=== PATIENT | female | born 1960 | race Caucasian/White ===

== ENCOUNTER 2021-10-09 11:26 | Outpatient (CLI) | payer OTHER, SELFPAY ==
--- NOTE | 2021-10-09 11:30 | ECG_ITS ---
Measurements Intervals [place] Rate: 83 P: 26 HI: 190 QRS: 36 QRSD: 86 T: 42 QT: 361 QTc: 425 Interpretive Statements SINUS RHYTHM DELAYED PRECORDIAL R/S TRANSITION BORDERLINE ST-T WAVE ABNORMALITY- HIGH LATERAL LEADS BASELINE ARTIFACT- I, II, III, AVR, AVL, AVF BORDERLINE ECG Electronically Signed On 10-09-2021 12:43:35 K 9 [employer] OFFICER by [place] Sylvester D.O.
== END 2021-10-09 11:27 | disposition home or self-care (01) ==
LOC: ANHSURGERY 11:31
PROVIDERS: PCP Family Medicine; Visit Provider Orthopaedic Surgery
DX: E11.65 Type 2 diabetes mellitus with hyperglycemia (principal); E78.2 Mixed hyperlipidemia; I10 Essential (primary) hypertension
CPT/HCPCS: 93005

== ENCOUNTER 2021-10-14 00:19 | Day surgery (SDC) | payer BC, OTHER, SELFPAY ==
[2021-10-08 14:42] VITALS: BMI 33.5
--- NOTE | 2021-10-08 15:13 | PC.NURSE ---
Report to the Outpatient Waiting Room, entrance under the green pavilion located off [facility], at time _12:30_ on date _10/14/21__. OR Time: __2:30 . SURGERY AND ARRIVAL TIMES SOMETIMES CHANGE!!! IF YOUR SURGERY TIME IS ADJUSTED, YOU WILL BE NOTIFIED ON 10/11/21 AFTERNOON!!! - You will be asked a series of questions to screen for COVID 19 for your protection. - A mask is required within the hospital. - CURRENTLY NO VISITORS are allowed at this time. Patient visitors will be guided where to wait when not with patient. Preoperative COVID Testing Requirements: No COVID Test needed if: (proof is required; if not received patient will have Rapid Test prior to entry) - Patient has received COVID Vaccine at least 14 days prior to procedure date or - Patient has positive COVID test result within last 90 days of surgery date. COVID Test needed if above criteria is not met If not COVID vaccinated a COVID test must be conducted within 72 hours of surgery and patient is asked to isolate self from time of testing until procedure. You will go to the [facility] for your COVID testing. The [employer] site is located at the corner of [address] [facility]. You will only be called if COVID results are positive and your surgeon may reschedule your elective surgery date. Patients may have clear liquids (water, carbonated beverages, clear teas, apple juice) until 3 hours prior to surgery with a maximum of 20 ounces. - No food from midnight until time of surgery - Infants may have breast milk until 4 hours before surgery, formula 6 hours prior to surgery. - Children will be allowed to drink immediately following surgery. If applicable, please bring a bottle or sippy cup to assist with drinking. Juice, water, soda, and popsicles are readily available. For infants on formula, please bring formula the day of surgery. Pacifiers are allowed. Take the following medications with a SIP of water the morning of surgery: _AMLODIPINE; TROUJEO 14UNITS(1/2 NORMAL DOSE); ACID APPLICATION TESTER (OMEPRAZOLE) Medications to discontinue per physician ____NO NEED TO HOLD ANY MEDS. MAY CONTINUE ASA 81MG PER DR. MCINTYRE Date to take last dose____N/A Please no make-up, nail greek, hairspray, perfume, deodorant, or body powder the day of surgery. No jewelry (including any body piercings) or valuables the day of surgery, leave them at home. Please take a shower or bath the night before, or the morning of, surgery with an antibacterial soap. Wear comfortable, loose fitting clothing. Children are encouraged to wear pajamas. - Jewelry must be removed prior to entering the operating room. Rings and piercings that are not removed may be cut off. - The hospital will not accept responsibility for valuables. - Please leave all valuables, including medications, at home the day of surgery. If you are going home after surgery, a licensed catshovel driver must drive you home. - NO public transportation without another adult. - We recommend that an adult stay with you for 24 hours following discharge. - We also recommend that you do not drive, make important decision, drink alcoholic beverages, or take any drugs that were not prescribed by your health care provider for at least 24 hours after your discharge time. For Pediatric surgeries, we recommend two adults accompany the child home (only one inside the building at this time). Follow any additional instructions given to you from your surgeon. Telephone instructions given to _NAKIA LIANG_and asked if any additional questions and then verbalized understanding. Patient advised to call surgeon office or pre surgery nurse liaison [phone] if any additional questions.
[2021-10-14] MEDS: ACETAMINOPHEN 500 MG TABLET 1000 MG PO (11:35)
[2021-10-14 11:38] LABS: Glucose Point of Care 137 mg/dl (65-105)
[2021-10-14 11:40] VITALS: BP 141/55; PULSE 67; RESP 16; TEMP 37.1; O2SAT 100
[2021-10-14] MEDS: KETOROLAC 15 MG/ML VIAL (*BKC) IV PUSH (11:51)
--- NOTE | 2021-10-14 12:00 | WPDHPUPDATE1 ---
History and Physical Update Update Date/Time: 10/14/21 12:00 History and Physical has been reviewed, including an updated exam of the patient. There are NO changes in the patient's condition. Risks, benefits, and alternatives have been discussed and questions answered. Patient agrees to proceed with procedure.
--- NOTE | 2021-10-14 12:02 | WPDANESEPPF ---
Anes - Initial Pre Proc Eval Procedure: Operation Date: 10/14/21 13:00 Proposed Procedures p Right First and Fourth Trigger Finger Release - Markus Saldana MD s Right First Dorsal Compartment Release - Markus Saldana MD Date/Time: 10/14/21 12:02 Surgeon: Markus Saldana MD Pre Op Diagnosis: right 1st and 4th trigger finger,rt dequerv synd Patient Data Age: 61 Gender: F Height: 1.52 m Weight: 78 kg Allergies Allergy/AdvReac Type Severity Reaction Status Date / Time No Known Allergies Allergy Verified 10/14/21 11:15 Home Medications Medication Instructions Recorded Confirmed Type aspirin 81 mg tablet,delayed 81 mg PO DAILY 06/13/20 10/14/21 History release blood sugar diagnostic #400 each 06/13/20 10/09/21 Rx blood-glucose meter #1 each 06/13/20 10/09/21 Rx lancets 31 gauge #400 each 06/13/20 10/09/21 Rx insulin glargine U-300 conc 300 28 unit SUB-Q DAILY 90 Days #8.397 04/18/21 10/14/21 Rx unit/mL (1.5 mL) subcutaneous pen ml pen needle, diabetic 31 gauge x #120 each 06/18/21 10/09/21 Rx 12/11 insulin lispro 100 unit/mL 12 unit SUB-Q TIDWMEAL ml 07/09/21 10/14/21 History subcutaneous pen lisinopril 40 mg tablet See Rx Instructions .ROUTE 08/14/21 10/14/21 Rx .COMPLEX #90 tablet omeprazole magnesium 20 mg 20 mg PO DAILY 09/25/21 10/14/21 History capsule,delayed release acetaminophen [Tylenol Arthritis 650 mg PO Q12H PRN 10/08/21 10/14/21 History Pain] amlodipine 2.5 mg PO DAILY 10/08/21 10/14/21 History atorvastatin 80 mg PO DAILY 10/08/21 10/14/21 History chlorthalidone 25 mg PO DAILY 10/08/21 10/14/21 History metformin 1,000 mg PO DAILY 10/08/21 10/14/21 History brimonidine 0.2 %-timolol 0.5 % 1 drp EACH EYE Q12H 10/09/21 10/14/21 History eye drops acetazolamide 250 mg PO BID 10/10/21 10/14/21 History dorzolamide 1 drp EACH EYE BID 10/10/21 10/14/21 History Laboratory Tests 10/14/21 11:34 POC Capillary Glucose 137 mg/dl H mg/dl (65-105) Patient hx anesthesia problems: none Family hx anesthesia problems: none Results Review: All pre-operative results and documents have been reviewed as part of the pre-operative evaluation. FORMERLY [facility] Past Medical History Medical History (Updated 10/09/21 @ 10:29 by Markus Saldana MD) Arthritis Cholecystectomy planned De Quervain's disease (radial styloid tenosynovitis) Right and left side Hemoglobin A1C between 7% and 9% indicating borderline diabetic control 12/28/20 A1c was 7.8 Hypertension Systolic murmur Trigger finger Trigger finger of right thumb Type 2 diabetes mellitus with hyperglycemia Type 2 diabetes mellitus with unspecified diabetic retinopathy without macular edema Surgical History Surgical History H/O section H/O tubal ligation H/O: hysterectomy History of cholecystectomy Hx of tonsillectomy Family History Family History Father Diabetes mellitus Family history of cardiovascular disease Family history of malignant neoplasm of kidney Mother Diabetes mellitus Family history of malignant neoplasm Sibling Diabetes mellitus Mother Family history of malignant neoplasm Family history of diabetes mellitus in first degree relative Father Family history of diabetes mellitus in first degree relative Family history of malignant neoplasm of kidney Family history of heart disease in male family member before age 55 Sibling Family history of diabetes mellitus in first degree relative Other Cerebrovascular accident Hypertension Social History Social History Smoking status: Never smoker Alcohol intake: never Substance use: never Substance use type: does not use Living arrangements: with family Gender identity (if verbalized by the patient): Female Spiritual care concerns: No Anes - Eval Final PrePr
[2021-10-14] MEDS: LACTATED RINGERS 1,000 ML 30 ML IV CONT (12:26)
[2021-10-14] MEDS: ceFAZolin 2 GM/D5W 50 ML 2 GM/50 ML BAG IVPB (12:36)
[2021-10-14 13:23] VITALS: BP 111/46; PULSE 67; RESP 12; TEMP 36.1; O2SAT 100
--- NOTE | 2021-10-14 13:30 | W.PM.PROC2 ---
Procedure Note - Detailed Date of Procedure 10/14/21 Pre-op Diagnosis right 1st and 4th trigger finger De Quervain right distal forearm Post-op Diagnosis same Procedure Performed Right trigger thumb release, right fourth trigger finger release, right first dorsal compartment release. Surgeon Markus Saldana MD Supervisor Shuttle Preparation Nazia Anesthesia general Description of Procedure The patient was identified and proper site identified. She was taken to the operating room and transferred to the OR table placing supine taking care to pad the torso and extremities. After general anesthetic induction and intubation a nonsterile tourniquet was placed high on the right arm which was prepped and draped in the usual sterile fashion. Several cc of .25 % plain Marcaine was injected into the subcutaneous tissue over the A1 charanjit of the right first and fourth digit, as well as over the right first dorsal compartment at the radial styloid. The extremity was exsanguinated and the tourniquet was inflated to 250 mmHg remaining up for about 18 minutes. A longitudinal incision was made over the fourth digit A1 charanjit. Subcutaneous tissue was bluntly dissected down to the charanjit while protecting the neurovascular bundles. The A1 charanjit was identified and then transected longitudinally in line with the incision and tendons. The tendons were delivered into the wound verifying the adequacy of the release. The same procedure was carried out over the thumb A1 charanjit. Next a longitudinal incision was made over the radial styloid. Subcutaneous tissue bluntly dissected. Sensory branch of the radial nerve identified retracted. The first dorsal compartment was identified and then transected longitudinally in line with the tendons releasing the compartment. The space was examined and no accessory compartment found. Hemostasis was carried out. The wound was irrigated with sterile saline. Skin edges were reapproximated with 4-0 nylon suture over the first and fourth digit A1 pulleys. Skin edges over the first dorsal compartment were reapproximated with 4-0 Prolene and Steri-Strips. Sterile dressing was applied. Tourniquet was released. She tolerated the procedure well and was transferred back to a cart, then taken to the recovery area in stable condition. There were no known intraoperative complications. Estimated blood loss was negligible. Perioperative antibiotics were administered. Estimated Blood Loss 1 Tourniquet Time 18 Drains No Packing No Pathology none sent Complications No immediate complications Condition stable Disposition PACU
[2021-10-14 13:35] VITALS: BP 126/43; PULSE 67; RESP 10; O2SAT 100
--- NOTE | 2021-10-14 13:39 | SUR.PHASEI ---
Simple mask removed at 1331.
[2021-10-14 13:50] VITALS: BP 120/44; PULSE 67; RESP 12; O2SAT 100
[2021-10-14 13:52] LABS: Glucose Point of Care 114 mg/dl (65-105)
[2021-10-14 13:57] VITALS: BP 140/51; PULSE 66; RESP 16
[2021-10-14 14:30] VITALS: BP 146/64; PULSE 61; RESP 16
== END 2021-10-14 15:04 | disposition home or self-care (01) ==
PROVIDERS: PCP Family Medicine; Visit Provider Orthopaedic Surgery
PROC: (CPT 26055; principal; 2021-10-14 13:00)
PROC: (CPT 25000; 2021-10-14 13:00)
DX: M65.341 Trigger finger, right ring finger (principal); M65.311 Trigger thumb, right thumb; M65.4 Radial styloid tenosynovitis [de Quervain]; I10 Essential (primary) hypertension; E11.319 Type 2 diabetes mellitus with unspecified diabetic retinopathy without macular edema; R01.1 Cardiac murmur, unspecified; M19.90 Unspecified osteoarthritis, unspecified site; Z90.49 Acquired absence of other specified parts of digestive tract; Z79.82 Long term (current) use of aspirin; Z79.84 Long term (current) use of oral hypoglycemic drugs; Z79.4 Long term (current) use of insulin; E66.9 Obesity, unspecified; Z68.33 Body mass index [BMI] 33.0-33.9, adult
CPT/HCPCS: 25000; 26055 ×2; 82948; A9270; J0690; J1100; J1885; J2250; J2405; J2704; J7120

== ENCOUNTER → 2022-01-03 12:16 | Outpatient (CLI) | payer OTHER, SELFPAY ==
--- NOTE | ~2022-01-03 | XR_ITS ---
XR hip LT min 3V w AP pelvis DATE: 01/03/2022 12:32 INDICATION: Left hip pain TECHNIQUE: AP and lateral views of left hip. AP pelvis. COMPARISON: None FINDINGS: No pelvic fracture or bone destruction is detected. The pubic symphysis and sacroiliac join ts are intact. Hip joint spaces are symmetric and relatively well preserved. No fracture or dislocation, avascular necrosis or bone destruction of the left hip. Prominent femoral and deep femoral arterial calcifications. IMPRESSION: No significant radiographic abnormality of the left hip joint Reviewed, dictated and finalized at location A.
== END ==
PROVIDERS: PCP Family Medicine; Visit Provider Physician Assistant
DX: M25.552 Pain in left hip (principal)
CPT/HCPCS: 73502

== ENCOUNTER → 2022-05-14 11:23 | Outpatient (CLI) | payer OTHER, SELFPAY ==
--- NOTE | ~2022-05-14 | XR_ITS ---
EXAMINATION: [id number] INDICATION: Left-sided chest pain TECHNIQUE: PA and lateral views of the chest and 3 views of the left ribs were obtained. COMPARISON: None. FINDINGS: Calcified nodules of the left lung are consistent with old granulomatous disease. The lungs are free of acute opacities. No pleural effusion or pneumothorax. The cardiomediastinal silhouette i s normal. Surgical clips in the right upper quadrant are likely from prior cholecystectomy. IMPRESSION: 1. No acute cardiopulmonary abnormality or evidence of displaced rib fracture. Reviewed, dictated and finalized at location A.
== END ==
PROVIDERS: PCP Family Medicine; Visit Provider Family Medicine
DX: R07.89 Other chest pain (principal)
CPT/HCPCS: 71101

== ENCOUNTER 2023-05-04 07:52 | Outpatient (CLI) | payer OTHER, SELFPAY ==
[2023-05-04 08:57] LABS: Anion Gap 5 mmol/L (8-16); Blood Urea Nitrogen 24 mg/dL (7-17); Calcium 9.4 mg/dL (8.4-10.2); Carbon Dioxide 28 mmol/L (22-30); Chloride 104 mmol/L (98-107); Estimated Glomerular Filt Rate 50; Glucose 123 mg/dL (65-110); Potassium 4.2 mmol/L (3.4-5.0); Sodium 137 mmol/L (137-145)
== END 2023-05-04 07:53 | disposition home or self-care (01) ==
LOC: ANHSURGERY 07:56
PROVIDERS: Anesthesiology; PCP Family Medicine; Visit Provider Orthopaedic Surgery
DX: E11.9 Type 2 diabetes mellitus without complications (principal); Z01.818 Encounter for other preprocedural examination
CPT/HCPCS: 36415; 80048

== ENCOUNTER 2023-05-11 01:34 | Day surgery (SDC) | payer OTHER, SELFPAY ==
[2023-05-01 15:35] VITALS: BMI 23.0
--- NOTE | 2023-05-01 15:41 | PC.NURSE ---
Report to the Outpatient Waiting Room, entrance under the green pavilion located off [facility], at time 6:00 on date 05/11/23. Planned Procedure Time: 7:30. Time changes happen often and if your time is changed the preop area will call you the afternoon before. - You and your visitor will be asked to self-screen and do not enter if you have any COVID symptoms. - A mask is optional within the hospital at this time. Patients may have clear liquids (water, carbonated beverages, clear teas, apple juice) until 3 hours prior to surgery (4:30) with a maximum of 20 ounces. - No food from midnight until time of surgery Take the following medications with a SIP of water the morning of surgery: AMLODIPINE DO NOT STOP ANY OF YOUR OTHER PRESCRIPTION MEDICATIONS PRIOR TO SURGERY ?EXCEPT THE FOLLOWING Medications to discontinue per physician: VITAMINS Date to take last dose: 05/07/23 Please no make-up, nail hong konger, hairspray, perfume, deodorant, or body powder the day of surgery. No jewelry (including any body piercings) or valuables the day of surgery, leave them at home. Please take a shower or bath the night before, or the morning of, surgery with an antibacterial soap. Wear comfortable, loose fitting clothing. - Jewelry must be removed prior to entering the operating room. Rings and piercings that are not removed may be cut off. - The hospital will not accept responsibility for valuables. - Please leave all valuables, including medications, at home the day of surgery. If you are going home after surgery, a licensed rivet driver must drive you home. - NO public transportation without another adult if you receive anesthesia. - We recommend that an adult stay with you for 24 hours following discharge. - We also recommend that you do not drive, make important decision, drink alcoholic beverages, or take any drugs that were not prescribed by your health care provider for at least 24 hours after your discharge time. Follow any additional instructions given to you from your surgeon. If you or anyone in your household have experienced Covid symptoms in the past week, please notify your surgeon or the nurse liaison at the phone number below for possible testing. Telephone instructions given to PT - NAKIA LIANG and asked if any additional questions and then verbalized understanding. Patient advised to call surgeon office or pre surgery nurse liaison [phone] if any additional questions.
[2023-05-11 09:04] VITALS: BP 152/48; PULSE 84; RESP 18; TEMP 36.2; O2SAT 100
[2023-05-11] MEDS: LACTATED RINGERS 1,000 ML 30 ML IV CONT (09:29)
[2023-05-11] MEDS: KETOROLAC 15 MG/ML VIAL (*BKC) IV PUSH (09:31)
[2023-05-11] MEDS: ACETAMINOPHEN 500 MG TABLET 1000 MG PO (09:31)
--- NOTE | 2023-05-11 09:31 | WPDHPUPDATE1 ---
History and Physical Update Update Date/Time: 05/11/23 09:31 History and Physical has been reviewed, including an updated exam of the patient. There are NO changes in the patient's condition. Risks, benefits, and alternatives have been discussed and questions answered. Patient agrees to proceed with procedure.
[2023-05-11 10:29] LABS: Glucose Point of Care 89 mg/dl (65-105)
--- NOTE | 2023-05-11 11:05 | WPDANESEPPF ---
Anes - Initial Pre Proc Eval Procedure: Operation Date: 05/11/23 11:00 Proposed Procedures p Right Third Trigger Finger Release - Markus Saldana MD Date/Time: 05/11/23 11:05 Surgeon: Markus Saldana MD Pre Op Diagnosis: Rt Third Trigger Finger Patient Data Age: 63 Gender: F Height: 1.52 m Weight: 52.7 kg Last Vital Signs Temp 36.2 C L 05/11/23 09:04 Pulse 84 05/11/23 09:04 Resp 18 05/11/23 09:04 BP 152/48 H 05/11/23 09:04 Pulse Ox 100 05/11/23 09:04 O2 Del Method Room Air 05/11/23 09:04 Allergies Allergy/AdvReac Type Severity Reaction Status Date / Time No Known Allergies Allergy Verified 05/11/23 09:11 Home Medications Medication Instructions Recorded Confirmed Type aspirin 81 mg tablet,delayed 81 mg PO DAILY 06/13/20 05/11/23 History release (Adult Aspirin Regimen) omeprazole magnesium 20 mg 20 mg PO DAILY 09/25/21 05/11/23 History capsule,delayed release (Acid Master Sheet Clerk (omeprazole)) acetaminophen 650 mg 650 mg PO Q12H PRN Pain 10/08/21 05/11/23 History tablet,extended release (Tylenol Arthritis Pain) blood sugar diagnostic (Blood #400 ea 02/21/22 05/11/23 Rx Glucose Test strips) ONE TOUCH VERIO KIT #1 ea 03/07/22 05/11/23 Rx ONE TOUCH VERIO TEST STRIPS #400 ea 03/07/22 05/11/23 Rx lancets 30 gauge (OneTouch Delica #400 ea 03/11/22 05/11/23 Rx Plus Lancet) pen needle, diabetic 31 gauge x #100 ea 05/07/22 05/11/23 Rx 3/16 (BD Ultra-Fine Mini Pen Needle) latanoprost 0.005 % eye drops 1 drp EACH EYE DAILY 08/25/22 05/11/23 History semaglutide 1 mg/dose (4 mg/3 mL) 1 mg (0.75 mL) subcut WEEKLY 90 09/03/22 05/11/23 Rx subcutaneous pen injector (Ozempic) days #9 mL metformin 500 mg tablet,extended 500 mg PO BID 90 days #180 tabs 01/07/23 05/11/23 Rx release 24 hr atorvastatin 80 mg tablet See Rx Instructions .Route 04/02/23 05/11/23 Rx .COMPLEX #90 tabs dapagliflozin propanediol 10 mg See Rx Instructions .Route 04/02/23 05/11/23 Rx tablet (Farxiga) .COMPLEX #90 tabs cholecalciferol (vitamin D3) 50 50 mcg PO DAILY #90 caps 04/07/23 05/11/23 Rx mcg (2,000 unit) capsule lisinopril 40 mg tablet See Rx Instructions .Route 04/07/23 05/11/23 Rx .COMPLEX #90 tabs amlodipine 2.5 mg tablet See Rx Instructions .Route 05/11/23 Rx .COMPLEX #90 tabs Laboratory Tests 05/11/23 10:25 POC Capillary Glucose 89 mg/dl (65-105) Patient hx anesthesia problems: none Family hx anesthesia problems: none Results Review: All pre-operative results and documents have been reviewed as part of the pre-operative evaluation. FORMERLY [facility] Past Medical History Medical History Arthritis Cholecystectomy planned Chronic kidney disease (CKD) stage G3a/A3, moderately decreased glomerular filtration rate (GFR) between 45-59 mL/min/1.73 square meter and albuminuria creatinine ratio greater than 300 mg/g De Quervain's disease (radial styloid tenosynovitis) Diabetic nephropathy with proteinuria Diabetic retinopathy with macular edema associated with type 2 diabetes mellitus Essential hypertension Hemoglobin A1C between 7% and 9% indicating borderline diabetic control 12/28/20 A1c was 7.8 Hip pain Hx of basal cell carcinoma neck 8.11.22 Left shoulder pain 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
[2023-05-11] MEDS: ceFAZolin 2 GM/D5W 50 ML 2 GM/50 ML BAG IVPB (11:08)
[2023-05-11 11:30] VITALS: BP 93/41; PULSE 71; RESP 14; O2SAT 98
[2023-05-11] MEDS: BUPivacaine HCL 0.25% PF 30 ML VIAL 4 ML INFILTRATE (11:34)
[2023-05-11 11:41] LABS: Glucose Point of Care 86 mg/dl (65-105)
--- NOTE | 2023-05-11 11:41 | W.PM.PROC2 ---
Procedure Note - Detailed Date of Procedure 05/11/23 Pre-op Diagnosis Rt Third Trigger Finger Post-op Diagnosis Same Procedure Performed right third trigger finger release Surgeon Markus Saldana MD [facility]z Anesthesia MAC and Local Description of Procedure the patient was identified and proper side identified. She was taken to the operating room and transferred to the OR table placed her supine taking care to pad her torso extremities. A nonsterile tourniquet was placed high in the right arm. Right upper extremity was prepped and draped in usual sterile fashion. Patient was administered IV sedation. 3cc of 0.25% plain Marcaine was injected into the subcutaneous tissue over the A1 charanjit of the third digit right hand. Extremity was exsanguinated tourniquet was inflated to 250 millimeters Hg remaining up for approximately 4 minutes. Longitudinal incision was made over the A1 charanjit. Subcutaneous tissue was bluntly dissected identifying the charanjit which was then transected longitudinally in line with the tendons. Neurovascular bundles were protected. Tendons were delivered into the wound to verify the adequacy of the release. Wound was irrigated with sterile saline. Skin edges reapproximated with 4-0 nylon suture and sterile dressing was applied. Tourniquet was released. She tolerated the procedure well was taken back to recovery area in stable condition. No known intraoperative complications. She received perioperative antibiotics. Estimated Blood Loss 0 Tourniquet Time 4 Drains No Packing No Pathology None sent Complications No immediate complications Condition Stable Disposition PACU [facility] Billing Surgery - Charge Forward: Surgery Billing ([id number])
[2023-05-11 12:00] VITALS: BP 126/60; PULSE 71
[2023-05-11 12:30] VITALS: BP 139/46; PULSE 67
== END 2023-05-11 12:45 | disposition home or self-care (01) ==
PROVIDERS: PCP Family Medicine; Visit Provider Orthopaedic Surgery
PROC: (CPT 26055; principal; 2023-05-11 11:00)
DX: M65.331 Trigger finger, right middle finger (principal); I12.9 Hypertensive chronic kidney disease with stage 1 through stage 4 chronic kidney disease, or unspecified chronic kidney disease; E11.22 Type 2 diabetes mellitus with diabetic chronic kidney disease; N18.31 Chronic kidney disease, stage 3a; M19.90 Unspecified osteoarthritis, unspecified site; E78.2 Mixed hyperlipidemia; E11.21 Type 2 diabetes mellitus with diabetic nephropathy; E11.311 Type 2 diabetes mellitus with unspecified diabetic retinopathy with macular edema; Z79.82 Long term (current) use of aspirin; Z79.84 Long term (current) use of oral hypoglycemic drugs; Z79.4 Long term (current) use of insulin
CPT/HCPCS: 26055; 36415; 80048; 82948; A9270; J0690; J1885; J2704; J7120

== ENCOUNTER 2024-01-28 14:51 | Outpatient (CLI) | payer OTHER, SELFPAY ==
--- NOTE | ~2024-01-28 | DEXA_ITS ---
Bone Density Report Name: NAKIA LIANG Age: 64 Sex: Female Ethnicity: White Date of : 1960 Indication: postmenopausal; screening for osteoporosis; cancer; Referring Provider: NIGEL HINTON Study: Bone densitometry was performed. Exam Date: January 28, 2024 Accession number: [id number] Bone Density: Region BMD T-score Z-score Classification AP Spine(L1-L4) 1.078 0.3 1.8 Normal Femoral Neck (Left) 0.607 -2.2 -0.8 Osteopenia Total Hip (Left) 0.774 -1.4 -0.3 Osteopenia Femoral Neck (Right) 0.654 -1.8 -0.4 Osteopenia Total Hip (Right) 0.806 -1.1 -0.1 Osteopenia Total Hip Mean 0.790 -1.3 -0.2 Osteopenia World Health Organization criteria for BMD impression classify patients as: Normal (T-score at or above -1.0), Osteopenia (T-score between -1.0 and -2.5), or Osteoporosis (T-score at or below -2.5). 10-year Fracture Risk(1): Major Osteoporotic Fracture 10% Hip Fracture 1.6% Reported Risk Factors: [place] (), Neck BMD=0.607, BMI=23.6 (1) FRAX(R) Version 3.08. Fracture probability calculated for an untreated patient. Fracture probability may be lower if the patient has received treatment. Clinical Information Provided by Patient: Has used the following medications: Vitamin D Has the following medical conditions: Cancer Patient maximum height was 60 Menopause Age: 54 No regular weight bearing exercise Does not regularly consume dairy products Drinks caffeinated beverages Onset of menses at age 14 Number of children 1 Impression: The patient has low bone mass, based on the Left Femoral Neck T-score. The patient has an estimated ten-year risk of hip fracture of 1.6% and an estimated ten-year risk of major fracture of 10%, based on the WHO FRAX algorithm. Discussion: BONE DENSITY IS LOW AT ONE OR MORE SKELETAL SITES. This patient's lowest T-score is low at one or more skeletal sites. It meets the World Health Organization's (WHO) criteria for ?low bone mass? (T-score between -1.0 and -2.5). The patient's 10-year risk of fracture as calculated by FRAX is less than the threshold where pharmacological therapy is recommended by the National Osteoporosis Foundation (NOF). However, all treatment decisions require clinical judgment and consideration of individual patient factors, including patient preferences, comorbidities, previous drug use, risk factors not captured in the FRAX model (e.g., frailty, falls, vitamin D deficiency, increased bone turnover, interval significant decline in bone density) and possible under or overestimation of fracture risk by FRAX. The patient should follow a healthful lifestyle (good nutrition with adequate calcium and vitamin D, and appropriate weight-bearing exercise). Follow-Up: Consider repeating this study in 2 to 3 years to reassess this pa
--- NOTE | ~2024-01-28 | MM_ITS ---
EXAMINATION: MM screening charles BI w cody HISTORY: Screening mammogram TECHNIQUE: Craniocaudal and mediolateral oblique 3-D tomosynthesis images were obtained and synthetic 2-D images were generated. CAD analysis was submitted and interpreted. COMPARISON: 04/08/2013 bilateral screening mammogram examination BREAST PARENCHYMAL COMPOSITION: There are scattered areas of fibroglandular density. FINDINGS: Prominent arterial calcifications, which may be associated with increased risk for clinical ly significant cardiovascular disease. There is no evidence of suspicious mass, calcification, or arc hitectural distortion to suggest malignancy in either breast. There has been no suspicious interval c hange. IMPRESSION: 1. No mammographic evidence of malignancy. 2. Recommend routine screening mammography in one year. BI-RADS Category 2: Benign finding(s). Reviewed, dictated and finalized at location A.
== END 2024-01-28 14:52 | disposition home or self-care (01) ==
PROVIDERS: PCP Family Medicine; Visit Provider Family Medicine
DX: Z12.31 Encounter for screening mammogram for malignant neoplasm of breast (principal); Z78.0 Asymptomatic menopausal state; M85.89 Other specified disorders of bone density and structure, multiple sites
CPT/HCPCS: 77063; 77067; 77080

== ENCOUNTER 2024-05-09 08:00 | Outpatient (RCR) | payer BC, SELFPAY ==
--- NOTE | 2024-03-23 09:18 | OPREHPOC ---
Outpatient Therapy Plan of Care This is a Multidisciplinary Plan of Care that may contain components documented by all disciplines (PT, OT, and ST.) PT Problem 1 PT Problem #1 Knowledge Deficit PT Goal 1 Goal *indep with HEP *demonstrate correct body mechanics with lifting from floor and sit/stand transfer Target Visit 8 PT Problem 2 PT Problem #2 Pain PT Goal 1 Goal 1* pt report pain at worst of 4/10 2* self assessment Oswestry rating of 34% limitation in activity level Target Visit 8 PT Problem 3 PT Problem #3 Impaired Flexibility PT Goal 1 Goal increase hamstring length, to decrease pull out operator sacrum supine SLR 55' 1* R 2* L Target Visit 8 PT Problem 4 PT Problem #4 Impaired Functional Mobility PT Goal 1 Goal 1* pt transfer sit to stand without pain increase 2* 2 minute walking test distance of 450' without an increase in pain Target Visit 8
--- NOTE | 2024-03-23 09:18 | PTOPEVAL1 ---
Assessment and note entered by Shelly Nicolas, PT Evaluation Information Assessment Status Evaluation Diagnosis low back pain Onset January 2024 Subjective Information gradual increase in back pain, without trauma or injury; have history of back troubles, but never had PT treatment before Activity: retired; baby sit grand children 4 & 6 yr old and they live with her, active; issues with arthritis of hands- numbness of hands; does not do any fitness activity; light home tasks, assists with heavy tasks Reported Pain Level Pain Score Self Report Additional Pain Score Comments pain range in the past week 0-7/10; low back, L buttock and lateral hip; pulls, hurts increase pain: sit to standing decrease pain: take aleve; have not used heat/ice- instruct on PRN use 10-15 min report tolerances: sleeping- toss and turn, do not sleep well in general due to shoulder pain sittin minutes- tend to shift weight and move when sitting Assessment PT Clinical Summary Lexii has the diagnosis of back pain. She reports gradual onset of pain. Self assessment Oswestry rating of 50% limitation in activity level. Pain increases with sit to stand-- has tall kitchen chairs that give her more pain. She is active at home, but does not do any fitness exercises. With the evaluation: flat lumbar spine posture; tends to sit with legs crossed; standing trunk flexion increases pain; tightness of both hamstrings; decrease trunk strength with single leg standing 10 seconds and unstable; tenderness over R and L SIJ and L buttock areas. Skilled PT services are indicated for modalities to decrease pain, therapeutic exercises to improve trunk strength and hamstring flexibility, with education for body mechanics, posture and HEP. Plan of Care Interventions Electrical Stimulation,Hot Pack/Cold Pack,Manual Therapy,Mechanical Traction,Neuro Re-education, Patien
--- NOTE | 2024-04-11 08:34 | PCPTNOTE ---
pt reports she will be out of town for 2 weeks: April 18 to Apr 29.
--- NOTE | 2024-05-09 09:04 | PTOPDC ---
Assessment and note entered by Shelly Nicolas, PT Discharge Report Assessment Status Discharge Diagnosis low back pain Onset January 2024 Subjective Information is getting little better, still have problems with sitting, standing too long; getting up from taller bar stool; when do have back pain, does not last as long; able to do some rafting this weekend, fell and slipped at the water edge with the raft; am doing the exercises; Reported Pain Level Pain Score Self Report Additional Pain Score Comments pain range in the past week 0-7/10; R and L lower lumbar-sacral and into L buttock increase pain: sit to stand -- getting up from taller bar stool; stand 5- 10 minutes decrease pain: sit/rest, aleve 2x/day; home inversion table; heat; sleep with pain meds PRN Assessment PT Clinical Summary Lexii has received 7 PT sessions. Compared to the initial evaluation: pain rating same at 0-7/10; self assessment Oswestry rating from 50% to 44% limitation in activity level; hamstring flexibility increased; increase in trunk and hip strength; 2 minute walking test distance from 400' with pain rating of 3/10 to 450' with pain rating of 3/10. Education for HEP, posture and body mechanics completed. The goals were partially met. Discharge PT services. She is to continue with HEP and self management of pain with activity/rest balance, monitor posture and HEP. Plan of Care PT Services Indicated No
== END 2024-05-09 11:46 | disposition home or self-care (01) ==
LOC: ANHPT 08:00
PROVIDERS: PCP Family Medicine; Visit Provider Family Medicine
DX: M54.30 Sciatica, unspecified side (principal)
CPT/HCPCS: 97014; 97110; 97140; 97161; 97530; G0283

== ENCOUNTER 2025-01-05 00:55 | Day surgery (SDC) | payer OTHER, SELFPAY ==
[2024-10-04 14:03] VITALS: BMI 23.2
--- NOTE | 2024-12-27 12:07 | PC.NURSE ---
Patient confirmed no new medical history since last PAT call on 10/04/24
--- OUTSIDE RECORDS SUMMARY | 2025-01-05 00:58 | XMS_ITS | Continuity of Care Document ---
Author Organization [facility] [id number] [place] [address] [place] [address] Phone Care Team Providers Care Health And Social Care Teacher Name Role Phone Benito Gaffney MD Unavailable Unavailable Allergies, Adverse Reactions, Alerts Substance Reaction Status Criticality No Known Allergies Active No Inform ation Medications Medication Instructions Dosage Effective Dates (start - stop) Status Comments metformin 1,000 mg tablet take 1 tablet by oral route 2 times every day with morning and evening meals 1000 MG - Active GLIMEPIRIDE (unknown strength) take 1 tablet by oral route every day Not Available - Active atorvastatin 40 mg tablet take 1 tablet by oral route every day 40 MG - Active Aspir-81 81 mg tablet,delayed release take 1 tablet by oral route every day - Active lisinopril 40 mg tablet take 1 tablet by oral route every day 40 MG - Active amlodipine 5 mg tablet take 1 tablet by oral route every day 5 MG - Active Procedures Procedure Date Refraction No Charge Refraction SCODI, Retina SCODI, Posterior Segment Eye Exam, New Patient Office/outpatient Visit, Est Advance Directives Directive Yes / No Effective Date File Name No Information Encounters Encounter Description Practice Location Reason(s) For Visit Diagnoses Date Provider Providers Copied on Encounter [facility], [address] [place] [address] [address], [place], [place], [id number], [place] tel:[phone] [facility] [place] Professional refraction (chief complaint) Age-related nuclear cataract, bilateral [address] Gulshan Oliver. [address], [address], [place], [place], [id number], [place]. tel:[phone] Referring Provider: [place], [address] [place], [address]. tel:[phone] [facility], [address], [place], [place], [address], [place] tel:[phone] [facility] Professional Cataract evaluation (chief complaint) Proliferative diabetic retinopathy of both eyes without macular edema associated with type 2 diabetes mellitusNeova scularization of optic disc of both eyesEpiretina l membrane (ERM) of both eyesAge-relat ed nuclear cataract, bilateral 8 Gulshan Oliver. [address] [facility], [facility] [address], [place], [place], [id number], [place]. tel:[phone] Referring [place]: [place], [address] [place], [address]. tel:[phone] Office/outpa tient Visit, [facility] [place], [address], [place], [place], [address], [place] tel:[phone] [facility] No Information [address] Brooke OD Fili. [address], [address], [place], [address], [place]. tel:[phone] Family History Family Member Type Diagnosis Age At Onset Mother Problem (finding) glaucoma Mother Problem (finding) degenerative disorder o f macula Mother Problem (finding) Diabetes mellitus Payers Payer name Insurance type Covered green party ID Authorchristophera tinazario(s) [place] [id number] Social History Type Description Quantity Date Captured Comments Alcohol Use Details No Caffeine Use Details coffee 32 oz per day Tobacco Use Status Current non-smoker 18 Smoking Status Never smoker Sex Female Chief Complaint And Reason For Visit From encounter dated '04/09/2018 15:15'. refraction (chief complaint). Description: The 58 year old female presents for a refraction only. Patient has had laser treatments and injections ou. Patient is seeing Dr. Clay on Thursday. Reason For Referral Reason For Referral No Information History Of Present Illness Encounter Date Complaint History Of Prese nt Illness refraction The 58 year old female presents for a refraction only. Patient has had laser treatments and injections ou. Patient is seeing Dr. Clay on Thursday. Cataract evaluation The 58 year old female presents for evaluation of Cataract evaluation in the right eye and left eye. 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 PT was referred by [facility] for cataract eval, Pt states her va has decreased over the last 4-6 mos at distance and near. Pt was prescribed glasses at [facility], she states no improvement in va with them on. Pt has trouble driving during the day and night due to glare, has a hard time recognizing street signs and faces recently. PT is a type II diabetic for the last 20 yrs, Pt does not check BS regularly, last reading was a week ago at 180, a1c unknown. PT states she has floaters but it is rare when she notices them, denies any flashes of light. PT is not using any gtts. Functional Status Date Functional Assessmen t No Information Instructions Date Instruction Additional Infor sharon Impression/Plan Impression/Plan Refer to Retinal specialist Rela tasneem to Proliferative diabetic retinopathy of both eyes without macular edema associated with type 2 diabetes mellitus Assessments Type Assessment Date assessment Age-related nuclear cataract, bi lateral Patient Care Teams Name Effective Dates (start - stop) Status Members No Information
--- OUTSIDE RECORDS SUMMARY | 2025-01-05 00:58 | XMS_ITS | Clinical Summary ---
Author Organization [facility] Address [facility] [facility] [place] [address] Care Team Providers Care Real Estate Internship Name Role Phone Mona Mccormack MD Primary Care Provider [phone] Source Comments [facility],non-owned Affiliates and Associated Physician Practices is amultiple site organization consisting of ambulatory clinics and hospital sitesin [place], [place], [place] and [place]. This disclosure is being madepursuant to the Care Everywhere program and may not contain all information available regarding this patient. Last updated 18.[facility] Allergies No known active allergies Medications * Be aware that medications may not be up to date on this document. Alwaysverify current medications with the patient. Medication Sig Dispensed Refills Start Date End Date Status METFORMIN HCL ER PO Activ e Empagliflozin (JARDIANCE PO) Active LISINOPRIL PO Active ATORVASTATIN CALCIUM PO Active HYDROCHLOROTHIAZIDE PO Active GLIPIZIDE PO Active aspirin (ASPIRIN) 81 MG tablet Take 81 mg by mouth once daily Active benzonatate (TESSALON) 200 MG capsule Take 1 capsule by mouth 3 times daily as needed for Cough 30 capsule 09/24/2017 Active zykdqcsy-hojkcutyu-r c (CORTISPORIN) 3.5-08557-4 otic suspension Instill 4 drops into left ear 4 times daily 1 bottles 11/14/2017 Active Family History Medical History Relation Name Comments CAD (Coronary Artery Disease) Father Cancer - Other Father Kidney Diabetes - Type 2 Father Cancer - Liver Mother Cancer - Lung Mother Diabetes - Type 2 Mother Relation Name Status Comments Father Mother Social History Tobacco Use Types Packs/Day Years Used Date Smoking Tobacco: Never Smokeless Tobacco: Never Sex and Gender Information Value Date Recorded Sex Assigned at Not on file Gender Identity Not on file Sexual Orientation Not on file Last Filed Vital Signs Vital Sign Reading Time Taken Comments Blood Pressure 144/76 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 Pulse 75 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 Temperature 36.6 C (97.9 F) 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 Respiratory Rate 16 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 Oxygen Saturation 98% 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 Inhaled Oxygen Concentration - - Weight 72.6 kg (160 lb) 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 Height 152.4 cm (5') 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 Body Mass Index 31.25 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 Plan of Treatment Health Maintenance Due Date Last Done Comments COLOGUARD (AGES 45-75) - COL ON CA SCREENING 1962 COLON MONITORING 1962 COLONOSCOPY - COLON CA SCREENING 1962 CT COLONOGRAPHY - COLON CA SCREENING 1962 Colorectal Cancer Screening 1962 FIT - COLON CA SCREENING 1962 FLEX SIG - COLON CA SCREENING 1962 MAMMOGRAM 1962 PAP SMEAR 1962 HIV SCREENING 1977 HEPATITIS C SCREENING 01/03/1980 DTAP/TDAP/TD VACCINES (1 - Tdap) 1981 PNEUMOCOCCAL VACCINE 50+ (1 of 1 - PCV) 01/08/2012 ZOSTER VACCINE (1 of 2) 01/08/2012 SCREENING FOR DIABETES 09/24/2017 COVID-19 VACCINE (1 - 2023-2 5 season) 2024 DEPRESSION SCREENING 09/28/2024 INFLUENZA VACCINE (Season Ended) 2025 Respiratory Syncytial Virus (RSV) Vaccine Pt: or over 60 yrs (1 - 1-dose 75+ series) 2037 HEPATITIS B VACCINE Aged Out No longe r eligible based on patient's age to complete this topic HIB VACCINE Aged Out No longer eligi ble based on patient's age to complete this topic HPV VACCINE Aged Out No longer eligi ble based on patient's age to complete this topic MENINGOCOCCAL (Group B) VACC INE SHARED DECISION-MAKING Aged Out No longer eligibl e based on patient's age to complete this topic MENINGOCOCCAL GROUPS A/C/Y/W VACCINE Aged Out No longer eligible b ased on patient's age to complete this topic PNEUMOCOCCAL VACCINE Aged Out No long er eligible based on patient's age to complete this topic Care Teams Real Estate Internship Relationship Specialty Start Date End Date Mona Mccormack MD [address] [place] [address] PCP - General Family Medicine 09/24/17
--- OUTSIDE RECORDS SUMMARY | 2025-01-05 00:59 | XMS_ITS | Clinical Summary ---
Author Organization [facility] Address [address] [place] [address] Care Team Providers Care Affiliate Marketing Specialist Name Role Phone Mona Mccormack MD Primary Care Provider + Allergies No known active allergies Medications aspirin-calciu m carbonate 81 mg-300 mg calcium(777 mg) tablet Take 81 mg by mouth daily Active FARXIGA 10 mg tablet Take 10 mg by mouth daily 3 9 Active metFORMIN XR (GLUCOPHAGE XR) 500 mg 24 hr tablet Take 1,000 mg by mouth 2 (two) times a day after breakfast and dinner Active amLODIPine (NORVASC) 2.5 mg tablet Take 2.5 mg by mouth daily Active chlorthalidone 25 mg tablet Take 25 mg by mouth daily Active cholecalcifero l (VITAMIN D-3) 400 unit capsule Take 400 Units by mouth daily Active insulin lispro (HumaLOG KwikPen Insulin) 100 unit/mL insulin pen Take 6-10 units before breakfast and dinner on a correctional scale as instructed 2 pen 9 Active Additional Information Patient not taking.Reported on 10/02/2022 ACCU-CHEK DANNIE PLUS TEST STRP strip USE 1 STRIP TO CHECK GLUCOSE THREE TIMES DAILY AND NEEDED 0 9 Active Vascepa 1 gram capsule Take 2 g by mouth 2 (two) times a day 2 Active BD Ultra-Fine Mini Pen Needle 31 gauge x 3/16 needle USE DIRECTED 4 TIMES DAILY WITH INSULIN INJECTIONS 2 Active atorvastatin (LIPITOR) 80 mg tablet Take 80 mg by mouth daily 1 Active naproxen (NAPROSYN) 500 mg tablet Take 500 mg by mouth 2 (two) times a day 2 Active lisinopriL (PRINIVIL,ZEST RIL) 40 mg tablet 2 Active amoxicillin-cl avulanate (AUGMENTIN) 875-125 mg per tablet 2 Active OneTouch Verio Flex meter [facility] [place] USE TO CHECK GLUCOSE 4 TIMES DAILY 2 Active OneTouch Delica Plus Lancet 30 gauge misc 2 Active TOUJEO 300 unit/mL (1.5 mL) pen for injection 2 Active HYDROcodone-ac etaminophen (NORCO) 5-325 mg per tablet Take 1 tablet by mouth nightly at bedtime 2 Active Ozempic 1 mg/dose (4 mg/3 mL) pen injector injection INJECT 1MG SUBCUTANEOUSLY WEEKLY 2 Active Ozempic 0.25 mg or 0.5 mg(2 mg/1.5 mL) pen injector injection INJECT 0.25MG SUBCUTANEOUSLY ONCE WEEKLY 2 Active ergocalciferol (VITAMIN D) 50,000 unit capsule TAKE 1 CAPSULE BY MOUTH ONCE A WEEK FOR 8 WEEKS 3 Active dorzolamide-ti moloL (COSOPT) 22.3-6.8 mg/mL ophthalmic solution Administer 1 drop into both eyes 2 (two) times a day 10 mL 11 4 Active latanoprost (XALATAN) 0.005 % ophthalmic solution Administer 1 drop into both eyes nightly 7.5 mL 3 4 Active FLUoxetine 10 mg capsule Take 1 tablet/capsule (10 mg total) by mouth daily 4 Active Active Problems Problem Noted Date Diagnosed Date 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 Clay Assessment: Secondary angle closure glaucoma right eye (OD) with elevated intraocular pressure (IOP) right eye (OD) from prior neovascularization of the angle in context of PDR both eyes (OU) POD1 Placement Glaucoma Drainage Implant - Right Ahmed valve - 11/18/21 - intraocular pressure (IOP) 15, visual acuity (VA) at baseline Postoperative instructions were given. The patient is to use: Moxifloxacin QID X 1 week Prednisolone Acetate 1% QID Patient is to wear the shield at bedtime X 1 week. Signs, symptoms of retinal detachment, tear, hole, and endophthalmitis were reviewed and the patient is to call immediately for concerns. We discussed that things should improve until they stabilize. Should there be any worsening of pain, vision, or redness the patient is to call. Followup 1 week or sooner for concerns. Assessment & Plan (11/15/2021 5:41 PM R D MANAGER): Referred by [facility] for intraocular pressure (IOP) 44 right eye (OD) Family history: None Current glaucoma medications: combigan TID + diamox 500 mg QID Allergies glaucoma drops: none Allergic to penicillin, sulfa or IV dye: none Other medications: no TCAs, MAO inhibitors, beta-blockers, steroids, diuretics No history of ocular injury/HSV, steroid response, migraines, sleep apnea, Raynauds, renal disease, hypotension, asthma, COPD Lasers/surgeries: status post (s/p) CEIOL both eyes (OU) status post (s/p) YAG right eye (OD) status post (s/p) panretinal photocoagulation (PRP) both eyes (OU) status post (s/p) avastin injections both eyes (OU) (last anti-VEGF 10/22/21) - with Dr. 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 on gonio - would NOT benefit from laser peripheral iridotomy (LPI) - without advanced cupping both eyes (OU) 0.6/0.5 with reassuring RNFL, small SNS right eye (OD) on Wright visual field (HVF) size 5 - will need urgent tube for iop reduction - plan for Ahmed with SPG right eye (OD) with posterior synechialysis next week; consider pre-op avastin - increase to 5 classes topically, continue oral carbonic anhydrase inhibitor (ALISSA) (patient without SE) - RTC Thursday for intraocular pressure (IOP) check Hypertension associated with diabetes 03/03/2019 Assessment & Plan (03/03/2019 3:49 PM CDT): Controlled on current medications. Hyperlipidemia associated with type 2 diabetes ruth ann puckett 03/03/2019 Assessment & Plan (03/03/2019 3:49 PM CDT): Will check lipid panel Type 2 diabetes mellitus wit h hyperglycemia, with long-term current use of insulin 01/04/2019 Assessment & Plan (03/03/2019 3:47 PM CDT): FBG still above goal. Increase Toujeo by 2 units every 5 days unitl FBG at goal. Continue same Humalog plan but advised to use 10 units > 240. BG goals reviewed. Advised to have blood work done within the next 2 weeks and diabetes eye exam before next appointment. Assessment & Plan (01/04/2019 4:13 PM CDT): Your Hba1c today was: Lab Results Component Value Date HGBA1C 10.9 01/04/2019 meaning a 3 month average sugar of : 277 Your goal hba1c is under 7.0 to prevent equipment operator intermodal yard diabetes complications ( eye , kidney and nerve damage ) . Your goal sugars are in the 90-130 range Exercise recommendations: It is recommended that you do daily aerobic ( walking, riding a bike, swimming ) and resistance exercises ( light weight lifting, resistance band stretching ) for at least 30 minutes , most days of the week. If you can not walk, chair exercises for 10-15 min a day would help tremendously. As little as 15-20 minutes exercise , in one or two sessions a day, is still very helpful to improve your diabetes control . Diet recommendations: Eat small portion meals, trying not to consume more than 1800 calories a day . Try to eat not more than than 2 servings of carbs ( starches ) wiith your meals. Avoid soft drinks, including regular sodas , fruit juices and sweetened tea. Drink water instead. Eat plenty of green and leafy vegetables, including salads. Medications: Take your medications regularly. Setting phone alarms can help . Keep your medication on the kitchen dinner table, by the bedside table or by the sink where they are visible to you. If you are taking insulin : the insulin that you are currently using does not need to be refrigerated. Keep it where you can see it . Monitor your sugar levels with finger sticks regularly and keep a log sheet or book. Bring your sugar meter and /or a log book or log sheet to every office visit. Check sugars before breakfast and dinner Stay on Toujeo , Farxiga and Metformin Take Humalog, 6 units before breakfast and dinner For sugars over 180, take 8 unitis For sugars over 240, take 10 units Fax sugar logs in a week Surgical History Surgery Date Site/Laterality Comments CATARACT EXTRACTION Bilateral s/p Yag Cap OD as well PANRETINAL PHOTOCOAGULATION Bilateral s/p SEAN OU SHUNT EXTERNALIZATION 11/19/2021 Right Ahmed RETINAL LASER PROCEDURE VITRECTOMY 06/19/2023 Right Medical History Medical History Date Comments Type 2 diabetes mellitus (HCC) Hyperlipidemia Hypertension Glaucoma Diabetic retinopathy (HCC) Social History Tobacco Use Types Packs/Day Years Used Date Smoking Tobacco: Never Smokeless Tobacco: Never Alcohol Use Standard Drinks/Week Comments Not Currently 0 (1 standard drink = 0.6 oz pur e alcohol) AUDIT-C Answer Date Recorded Q1: How often do you have a drink containing alc ohol? Monthly or less 11/18/2021 Q2: How many drinks containi ng alcohol do you have on a typical day when you are drinking? 1 or 2 11/18/2021 Q3: How often do you have si x or more drinks on one occasion? Never 11/18/2021 PHQ-2 Answer Date Recorded PHQ-2 Score 0 05/21/2019 Comments Unknown Sex and Gender Information Value Date Recorded Sex Assigned at Not on file Legal Sex Female 3:35 AM R D MANAGER Gender Identity Not on file Sexual Orientation Not on file Obstetrics History Last Filed Vital Signs Vital Sign Reading Time Taken Comments Blood Pressure 109/54 11/18/2021 12:40 PM R D MANAGER Pulse 67 11/18/2021 12:40 PM R D MANAGER Temperature 36.9 C (98.4 F) 11/18/2021 12:25 PM R D MANAGER Respiratory Rate 12 11/18/2021 12:4 0 PM R D MANAGER Oxygen Saturation 97% 11/18/2021 12: 40 PM R D MANAGER Inhaled Oxygen Concentration - - Weight 72.5 kg (159 lb 12.8 oz) 019 11:10 AM CDT Height 152.4 cm (5') 03/03/2019 11:10 AM CDT Body Mass Index 31.21 03/03/2019 11:10 AM CDT Plan of Treatment Health Maintenance Due Date Last Done Comments Albumin Creatinine Ratio, Urine 1962 Cervical Cancer Screening 1962 Colon Cancer Screening-Colonoscopy 1962 Hepatitis C Screening 1962 eGFR 1962 Lipid Panel 1962 DTaP/Tdap/Td Vaccine (1 - Tdap) 1973 Hepatitis B Screening 01/08/1980 Regular Well Visit/Exam 18-64 01/08/1980 Pneumococcal vaccine <65 (1 of 2 - PCV) 1981 Zoster Vaccine (1 of 2) 01/08/2012 Breast Cancer Screening-Mammogram 12/21/2015 015, 12/22/2013 Hemoglobin A1C 07/06/2019 01/04/2019 Depression Screening 01/05/2020 01/04/2019 Foot Exam 03/03/2020 03/03/2019, 01/04/2019 Covid-19 Vaccine (2 - 2023- season) 05/29/202404/2021 Influenza Vaccine (#1) 2024 06/26/2016, 2012 Dilated Eye Exam 09/06/2025 09/06/2024, 05/20/2022 Medical Devices Implanted Type Area Floor Manager Device Identifier Shelf Expiration Date Model / Serial / Lot [employer] Fp7 Ahmed Flexible Plate .635mm .305mm [id number] 25mm Valve Thinner - [id number] Implanted:Qty : 1 on 11/18/2021 by Kate Ngo MD at [facility] Drain Right: Eye [employer] [id number] 09/26/2023 FP7 / / [id number] Description:Ahmed Glaucoma V alve FP7 Right eye [employer] [id number] Tutoplast Iopatch 1x.6cm Dehydrate Processed Allograft Graft Soft - [id number] - [id number] Implanted:Qty : 1 on 11/18/2021 by Kate Ngo MD at [facility] Other - see comments Right: Eye [employer] 04/27/2026 [id number] / [id number] / [id number] Description:Tutoplast Proces sed Sclera Dehydrated human Sclera 0.6x1.0cm Right eye Procedures Procedure Name Priority Date/Time Associated Diagnosis Comments POCT HEMOGLOBIN A1C Routine 01/04/2019 1 0:55 AM CDT Type 2 diabetes mellitus with background retinopathy (HCC) SCREENING MAMMOGRAM 2D BILATERAL Routine 12/20/2014 9:52 AM CDT from Last 3 Months or Most Recently Relevant to Health Maintenance Results * POCT hemoglobin A1c (01/04/2019 10:55 AM CDT) Hemoglobin A1C, POC 10.9 Blood specimen (specimen) 01/04/2019 10:55 AM CDT Alysha Newell MD POINT OF CARE TEST ORDERABLES Fi nal Result * Screening Mammogram 2D Bilateral (12/20/2014 9:52 AM CDT) Anatomical Region Laterality Modality Breast Bilateral Mammography 12/20/2014 9:52 AM CDT Impressions 12/21/2014 10:37 AM CDT BIRADS 1: NEGATIVE There is no mammographic evidence of malignancy. A 1 year screening mammogram is recommended. The patient has been or will be contacted. The patient will be entered into an automated reminder system to schedule a mammogram in one year. Electronically signed by: Dr. Edgar Orosco pr/:12/21/2014 10:36:18 Analytics Intern: Flor TUCKER (R)(M), [facility] letter sent: Normal Exam Reading location: BI-RADS: 1 Negative [EOD] Narrative 12/21/2014 10:37 AM CDT - LUMA BILATERAL SCREENING W/CAD BILATERAL DIGITAL SCREENING MAMMOGRAM WITH CAD: 12/20/2014 The study was acquired using full field digital technology and interpreted from soft copy. Current study was also evaluated with ICAD version 7.2. COMPARISONS: Comparison is made to exams dated: 12/22/2013 mammogram and 12/23/2011 mammogram - [facility]. BREAST TISSUE: There are scattered areas of fibroglandular density. FINDINGS: No significant masses, calcifications, or other findings are seen in either breast. There has been no significant interval change. Procedure Note Provider, MD Josué - 02/12/2021 - [facility] BILATERAL SCREENING W/CAD BILATERAL DIGITAL SCREENING MAMMOGRAM WITH CAD: 12/20/2014 The study was acquired using full field digital technology and interpretedfrom soft copy. Current study was also evaluated with ICAD version 7.2. COMPARISONS: Comparison is made to exams dated: 12/22/2013 mammogram and 12/23/2011 mammogram - [facility]. BREAST TISSUE: There are scattered areas of fibroglandular density. FINDINGS: No significant masses, calcifications, or other findings areseen in either breast. There has been no significant interval change. IMPRESSION: BIRADS 1: NEGATIVE There is no mammographic evidence of malignancy. A 1 year screeningmammogram is recommended. The patient has been or will be contacted. The patient will be entered into an automated reminder system to schedulea mammogram in one year. Electronically signed by: Dr. Edgar Orocso pr/:12/21/2014 10:36:18 Analytics Intern: Flor Payne RT (R)(M), [facility] letter sent: Normal Exam Reading location: BI-RADS: 1 Negative [EOD] us Marisa Wolf MD IMG MAMMO PROCEDURES Fin al Result from Last 3 Months or Most Recently Relevant to Health Maintenance Insurance [facility] OPEN ACCESS CHOICE PRF PPO [place] Care Teams Affiliate Marketing Specialist Relationship Specialty Start Date End Date Mona Mccormack MD PCP - General 03/13/15
--- OUTSIDE RECORDS SUMMARY | 2025-01-05 00:59 | XMS_ITS | Referral Summary ---
Author Organization [facility] Address [address] [place] [address] Care Team Providers Care Car Framer Name Role Phone Mona Mccormack MD Primary [...] tablet 2 Active OneTouch Verio Flex meter [facility] USE TO CHECK GLUCOSE 4 [...] 11/15/2021 Assessment & Plan (11/19/2021 10:32 AM HOT PATCHER): Lasers/surgeries: status post (s/p) CEIOL both eyes [...] concerns. Assessment & Plan (11/15/2021 5:41 PM HOT PATCHER): Referred by [facility] for intraocular pressure (IOP) 44 right [...] goal hba1c is under 7.0 to prevent long wall mining machine helper diabetes complications ( eye , kidney and [...] units Fax sugar logs in a week Social History Tobacco Use Types Packs/Day Years [...] on file Legal Sex Female 3:35 AM HOT PATCHER Gender Identity Not on file Sexual Orientation Not on file Last Filed Vital Signs Vital Sign Reading Time Taken Comments Blood Pressure 109/54 11/18/2021 12:40 PM HOT PATCHER Pulse 67 11/18/2021 12:40 PM HOT PATCHER Temperature 36.9 C (98.4 F) 11/18/2021 12:25 PM HOT PATCHER Respiratory Rate 12 11/18/2021 12:4 0 PM HOT PATCHER Oxygen Saturation 97% 11/18/2021 12: 40 PM HOT PATCHER Inhaled Oxygen Concentration - - Weight 72.5 kg (159 lb 12.8 oz) 019 11:10 AM CDT Height 152.4 cm (5') 03/03/2019 11:10 AM CDT Body Mass Index 31.21 03/03/2019 11:10 AM CDT Plan of Treatment Not on file Medical Devices Implanted Type Area Field Care Manager Device Identifier Shelf Expiration Date Model / Serial / Lot [employer] Fp7 Ahmed Flexible Plate .635mm .305mm [id number] 25mm Valve Thinner - [id number] Implanted:Qty : 1 on 11/18/2021 by Kate Ngo MD at [facility] Drain Right: Eye [employer] [id number] 09/26/2023 FP7 / / [id number] Description:Ahmed Glaucoma V alve FP7 Right eye [employer] 29960 Tutoplast Iopatch 1x.6cm Dehydrate Processed Allograft Graft Soft - [id number] - [id number] Implanted:Qty : 1 on 11/18/2021 by Kate Ngo MD at [facility] Other - see comments Right: Eye [employer] 04/27/2026 [id number] / [id number] / [id number] Description:Tutoplast Proces sed Sclera Dehydrated human Sclera [...] year. Electronically signed by: Dr. Edgar Orosco nh/:12/21/2014 10:36:18 Arm Maker: Flor TUCKER (R)(M), [facility] letter sent: Normal Exam Reading location: BI-RADS: 1 Negative [EOD] Narrative 12/21/2014 10:37 AM CDT - LUMA BILATERAL SCREENING W/CAD BILATERAL DIGITAL SCREENING MAMMOGRAM WITH CAD: 12/20/2014 The study was acquired using full field digital technology and interpreted from soft copy. Current study was also evaluated with ICAD version 7.2. COMPARISONS: Comparison is made to exams dated: 12/22/2013 mammogram and 12/23/2011 mammogram - [facility]. BREAST TISSUE: There are scattered areas of fibroglandular density. FINDINGS: No significant masses, calcifications, or other findings are seen in either breast. There has been no significant interval change. Procedure Note Provider, MD Josué - 02/12/2021 - LUMA BILATERAL SCREENING W/CAD BILATERAL DIGITAL SCREENING MAMMOGRAM WITH CAD: 12/20/2014 The study was acquired using full field digital technology and interpretedfrom soft copy. Current study was also evaluated with ICAD version 7.2. COMPARISONS: Comparison is made to exams dated: 12/22/2013 mammogram and 12/23/2011 mammogram - [facility]. BREAST TISSUE: There are scattered areas of [...] year. Electronically signed by: Dr. Edgar Orosco nh/:12/21/2014 10:36:18 Arm Maker: Flor Payne RT (R)(M), [facility] letter sent: Normal Exam Reading location: BI-RADS: 1 Negative [EOD] us Marisa Wolf MD IMG MAMMO PROCEDURES Fin al Result from Last 3 Months or Most Recently Relevant to Health Maintenance Insurance [facility] [employer] OPEN ACCESS BL CHOICE PRF PPO [place] Care Teams Car Framer Relationship Specialty Start Date End Date Mona Mccormack MD PCP - General 03/13/15
[2025-01-05 06:42] VITALS: BP 125/56; PULSE 70; RESP 18; TEMP 36.5; O2SAT 100; BMI 22.4
[2025-01-05] MEDS: LACTATED RINGERS 1,000 ML 150 ML IV CONT (06:45)
[2025-01-05 07:05] LABS: Glucose Point of Care 94 mg/dl (65-105)
--- NOTE | 2025-01-05 07:40 | P.PNAN_ITS ---
Anes - Initial Pre Proc Eval Procedure: Operation Date: 01/05/25 08:00 Proposed Procedures p Screening Colonoscopy - Silvestre Dickerson MD Date/Time: 01/05/25 07:40 Surgeon: Silvestre Dickerson MD Pre Op Diagnosis: screening malignant neoplasmcolon Patient Data Age: 64 Gender: F Height: 1.52 m Weight: 52.2 kg Last Vital Signs Temp 97.7 F 01/05/25 06:42 Pulse 70 01/05/25 06:42 Resp 18 01/05/25 06:42 BP 125/56 L 01/05/25 06:42 Pulse Ox 100 01/05/25 06:42 O2 Del Method Room Air 01/05/25 06:42 Allergies Allergy/AdvReac Type Severity Reaction Status Date / Time No Known Allergies Allergy Verified 01/05/25 06:40 Home Medications ?Medication ?Instructions ?Recorded ?Confirmed ?Type aspirin 81 mg tablet,delayed 81 mg PO DAILY 06/13/20 01/05/25 History release (Adult Aspirin Regimen) omeprazole magnesium 20 mg 20 mg PO DAILY 09/25/21 01/05/25 History capsule,delayed release (Acid Blocker And Polisher Gold Wheel (omeprazole)) acetaminophen 650 mg 650 mg PO Q12H PRN Pain 10/08/21 10/17/24 History tablet,extended release (Tylenol Arthritis Pain) ONE TOUCH VERIO KIT #1 ea 03/07/22 10/17/24 Rx ONE TOUCH VERIO TEST STRIPS #400 ea 03/07/22 10/17/24 Rx lancets 30 gauge (OneTouch Delica #400 ea 03/11/22 10/17/24 Rx Plus Lancet) pen needle, diabetic 31 gauge x #100 ea 05/07/22 10/17/24 Rx 3/16 (BD Ultra-Fine Mini Pen Needle) latanoprost 0.005 % eye drops 1 drp EACH EYE DAILY 08/25/22 01/05/25 History cholecalciferol (vitamin D3) 50 50 mcg PO DAILY #90 caps 04/07/23 01/05/25 Rx mcg (2,000 unit) capsule blood sugar diagnostic (OneTouch #100 ea 10/27/23 10/17/24 Rx Verio test strips) semaglutide 1 mg/dose (4 mg/3 mL) See Rx Instructions .Route 12/02/23 01/05/25 Rx subcutaneous pen injector (Ozempic) .COMPLEX #9 mL atorvastatin 80 mg tablet See Rx Instructions .Route 12/21/23 01/05/25 Rx .COMPLEX #90 tabs metformin 500 mg tablet,extended 500 mg PO BID 90 days #180 tabs 04/12/24 01/05/25 Rx release 24 hr amlodipine 2.5 mg tablet See Rx Instructions .Route 04/18/24 01/05/25 Rx .COMPLEX #90 tabs dorzolamide 22.3 mg-timolol 6.8 1 drp EACH EYE Q12H 05/10/24 01/05/25 History mg/mL eye drops ascorbate calcium (vitamin C) 500 500 mg PO DAILY 07/11/24 01/05/25 History mg tablet empagliflozin 10 mg tablet 10 mg PO DAILY 07/11/24 01/05/25 History (Jardiance) fluoxetine 20 mg capsule 20 mg PO DAILY #90 caps 11/02/24 01/05/25 Rx lisinopril 40 mg tablet See Rx Instructions .Route 12/02/24 01/05/25 Rx .COMPLEX #90 tabs Laboratory Tests 01/05/25 06:59 POC Capillary Glucose 94 mg/dl (65-105) Patient hx anesthesia problems: none Family hx anesthesia problems: none Results Review: All pre-operative results and documents have been reviewed as part of the pre- operative evaluation. [facility] Past Medical History Medical History Left shoulder pain De Quervain's disease (radial styloid tenosynovitis) Left-sided chest wall pain Diabetic nephropathy with proteinuria Hx of basal cell carcinoma neck 05.08.22 Chronic kidney disease (CKD) stage G3a/A3, moderately decreased glomerular filtration rate (GFR) between 45-59 mL/min/1.73 square meter and albuminuria creatinine ratio greater than 300 mg/g Proteinuria Strain of left inguinal region Hip pain Systolic murmur heard on single exam 10.09.21. Obesity (BMI 30.0-34.9) Pain in left hand Diabetic retinopathy with macular edema associated with type 2 diabetes mellitus Arthritis Trigger finger Hemoglobin A1C between 7% and 9% indicating borderline diabetic control 12/28/20 A1c was 7.8 Cholecystectomy planned Type 2 diabetes mellitus with unspecified diabetic retinopathy without macular edema Essential hypertension intermediate (current) use of insulin Mixed hyperlipidemia Surgical History Surgical History H/O eye surgery right eye Trigger finger, right middle finger trigger finger release May 11, 2023 History of skin surgery removal of skin cancer on forehead and back Trigger finger, right ring finger Trigger finger release October 14, 2021 Hx of tonsillectomy H/O tubal ligation History of cholecystectomy Trigger finger of right thumb Trigger thumb release October 14, 2021 De Quervain's disease (radial styloid tenosynovitis) Right first dorsal compartment release October 14, 2021 H/O section H/O: hysterectomy Family History Family History Father Diabetes mellitus Family history of cardiovascular disease Family history of malignant neoplasm of kidney Mother Diabetes mellitus Family history of malignant neoplasm Sibling Diabetes mellitus Mother Family history of malignant neoplasm Family history of diabetes mellitus in first degree relative Father Family history of diabetes mellitus in first degree relative Family history of malignant neoplasm of kidney Family history of heart disease in male family member before age 55 Sibling Family history of diabetes mellitus in first degree relative Other Cerebrovascular accident Hypertension Social History Social History Smoking status: Never smoker Alcohol intake: never Alcohol use details: rare use Substance use: never Substance use type: does not use Do You Feel Safe in your Home?: Yes Lack of Transportation: No Lack of Food: Never True Current Housing: Decline to Answer Concerned About Future Housing: Decline to Answer Difficulty Paying Gas/Electric Bills: Decline to Answer Difficulty Paying for Meds: Decline to Answer Currently Unemployed: Decline to Answer Education: Decline to Answer Difficulty w/ Childcare or Family Care: Decline to Answer Living arrangements: with family Additional living arrangements comments: With sp Occupation/Education: retired Gender identity (if verbalized by the patient): Female Spiritual care concerns: No Anes - Eval Final PreProcedure Day of Procedure 01/05/25 07:40 Patient weight: normal Heart: regular rate and rhythm Lungs: clear to auscultation Airway: Mallampati scale class II Neurological: alert and oriented Last oral intake: >/= 8 hours ASA classification: III Emergent: no Anesthetic plan: proceed Anesthesia type and monitoring: general GIVS and standard monitoring Results Review: All pre-operative results and documents have been reviewed as part of the pre- operative evaluation. Informed Consent: The patient's anesthetic plan and its attendant risks and benefits were discussed with the patient/family/POA. Questions were solicited and answers provided to the satisfaction of the patient/family/POA.
--- NOTE | 2025-01-05 07:51 | PM.HPGS ---
History of Present Illness History of Present Illness Consent: Risks, benefits, and alternatives have been discussed and questions answered. Patient agrees to proceed with procedure. Chief complaint: screening malignant neoplasmcolon Narrative: Lexii Barton is a 64 year old female here for screening colonoscopy, last one 12 years ago Review of Systems Review of Systems: All systems reviewed & are unremarkable except as noted in HPI and below PMFSH Past Medical History Medical History (Updated 01/05/25 @ 07:51 by Silvestre Dickerson MD) Colon cancer screening Left shoulder pain De Quervain's disease (radial styloid tenosynovitis) Left-sided chest wall pain Diabetic nephropathy with proteinuria Hx of basal cell carcinoma neck 05.08.22 Chronic kidney disease (CKD) stage G3a/A3, moderately decreased glomerular filtration rate (GFR) between 45-59 mL/min/1.73 square meter and albuminuria creatinine ratio greater than 300 mg/g Proteinuria Strain of left inguinal region Hip pain Systolic murmur heard on single exam 10.09.21. 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 Mixed hyperlipidemia Surgical History Surgical History H/O eye surgery right eye Trigger finger, right middle finger trigger finger release May 11, 2023 History of skin surgery removal of skin cancer on forehead and back Trigger finger, right ring finger Trigger finger release October 14, 2021 Hx of tonsillectomy H/O tubal ligation History of cholecystectomy Trigger finger of right thumb Trigger thumb release October 14, 2021 De Quervain's disease (radial styloid tenosynovitis) Right first dorsal compartment release October 14, 2021 H/O section H/O: hysterectomy Family History Family History Father Diabetes mellitus Family history of cardiovascular disease Family history of malignant neoplasm of kidney Mother Diabetes mellitus Family history of malignant neoplasm Sibling Diabetes mellitus Mother Family history of malignant neoplasm Family history of diabetes mellitus in first degree relative Father Family history of diabetes mellitus in first degree relative Family history of malignant neoplasm of kidney Family history of heart disease in male family member before age 55 Sibling Family history of diabetes mellitus in first degree relative Other Cerebrovascular accident Hypertension Social History Social History Smoking status: Never smoker Alcohol intake: never Alcohol use details: rare use Substance use: never Substance use type: does not use Do You Feel Safe in your Home?: Yes Lack of Transportation: No Lack of Food: Never True Current Housing: Decline to Answer Concerned About Future Housing: Decline to Answer Difficulty Paying Gas/Electric Bills: Decline to Answer Difficulty Paying for Meds: Decline to Answer Currently Unemployed: Decline to Answer Education: Decline to Answer Difficulty w/ Childcare or Family Care: Decline to Answer Living arrangements: with family Additional living arrangements comments: With sp Occupation/Education: retired Gender identity (if verbalized by the patient): Female Spiritual care concerns: No Meds Home Medications and Allergies Home Medications ?Medication ?Instructions ?Recorded ?Confirmed ?Type aspirin 81 mg tablet,delayed 81 mg PO DAILY 06/13/20 01/05/25 History release (Adult Aspirin Regimen) omeprazole magnesium 20 mg 20 mg PO DAILY 09/25/21 01/05/25 History capsule,delayed release (Acid Sanding Line Operator (omeprazole)) acetaminophen 650 mg 650 mg PO Q12H PRN Pain 10/08/21 10/17/24 History tablet,extended release (Tylenol Arthritis Pain) ONE TOUCH VERIO KIT #1 ea 03/07/22 10/17/24 Rx ONE TOUCH VERIO TEST STRIPS #400 ea 03/07/22 10/17/24 Rx lancets 30 gauge (OneTouch Delmike #400 ea 03/11/22 10/17/24 Rx Plus Lancet) pen needle, diabetic 31 gauge x #100 ea 05/07/22 10/17/24 Rx 3/16 (BD Ultra-Fine Mini Pen Needle) latanoprost 0.005 % eye drops 1 drp EACH EYE DAILY 08/25/22 01/05/25 History cholecalciferol (vitamin D3) 50 50 mcg PO DAILY #90 caps 04/07/23 01/05/25 Rx mcg (2,000 unit) capsule blood sugar diagnostic (OneTouch #100 ea 10/27/23 10/17/24 Rx Verio test strips) semaglutide 1 mg/dose (4 mg/3 mL) See Rx Instructions .Route 12/02/23 01/05/25 Rx subcutaneous pen injector (Ozempic) .COMPLEX #9 mL atorvastatin 80 mg tablet See Rx Instructions .Route 12/21/23 01/05/25 Rx .COMPLEX #90 tabs metformin 500 mg tablet,extended 500 mg PO BID 90 days #180 tabs 04/12/24 01/05/25 Rx release 24 hr amlodipine 2.5 mg tablet See Rx Instructions .Route 04/18/24 01/05/25 Rx .COMPLEX #90 tabs dorzolamide 22.3 mg-timolol 6.8 1 drp EACH EYE Q12H 05/10/24 01/05/25 History mg/mL eye drops ascorbate calcium (vitamin C) 500 500 mg PO DAILY 07/11/24 01/05/25 History mg tablet empagliflozin 10 mg tablet 10 mg PO DAILY 07/11/24 01/05/25 History (Jardiance) fluoxetine 20 mg capsule 20 mg PO DAILY #90 caps 11/02/24 01/05/25 Rx lisinopril 40 mg tablet See Rx Instructions .Route 12/02/24 01/05/25 Rx .COMPLEX #90 tabs Allergies Allergy/AdvReac Type Severity Reaction Status Date / Time No Known Allergies Allergy Verified 01/05/25 06:40 Vital Signs Vital Signs - 24 hr 01/05/25 06:42 Temperature 97.7 F Pulse Rate 70 Respiratory Rate 18 Blood Pressure 125/56 L Pulse Oximetry 100 Oxygen Delivery Room Air Exam Const: General: comfortable and no acute distress HENMT: Face/Nose/Sinus: Normal nares present Eyes: General: appearance normal, both eyes and all related structures Neck: Neck: no JVD Resp: Auscultation: clear to auscultation bilaterally Cardio: Rate: regular rate Rhythm: regular rhythm GI: Inspection: non-distended GI Palp: Yes Soft to palpation Skin: General skin exam: normal color Neuro: General: gait normal Speech: normal speech Extrem: General: normal to inspection Psych: Mental Status: mental status grossly normal Assessment and Plan Assessment and plan (1) Colon cancer screening: Code(s): Z12.11 - Encounter for screening for malignant neoplasm of colon Status: Acute Assessment and Plan: colonoscopy
[2025-01-05 08:13] VITALS: BP 104/43; PULSE 72; RESP 13; O2SAT 100
[2025-01-05 08:23] VITALS: BP 98/46; PULSE 71; RESP 16; O2SAT 100
[2025-01-05 08:33] VITALS: BP 107/50; PULSE 69; RESP 20; O2SAT 100
== END 2025-01-05 08:43 | disposition home or self-care (01) ==
PROVIDERS: PCP Family Medicine; Referring Provider Family Medicine; Visit Provider Internal Medicine Gastroenterology
PROC: 0DJD8ZZ Inspection of Lower Intestinal Tract, Via Natural or Artificial Opening Endoscopic (ICD-10-PCS; CPT 45378; principal; 2025-01-05 08:00)
DX: Z12.11 Encounter for screening for malignant neoplasm of colon (principal); E11.21 Type 2 diabetes mellitus with diabetic nephropathy; E11.311 Type 2 diabetes mellitus with unspecified diabetic retinopathy with macular edema; E11.22 Type 2 diabetes mellitus with diabetic chronic kidney disease; I12.9 Hypertensive chronic kidney disease with stage 1 through stage 4 chronic kidney disease, or unspecified chronic kidney disease; N18.31 Chronic kidney disease, stage 3a; R01.1 Cardiac murmur, unspecified; E78.2 Mixed hyperlipidemia; M65.4 Radial styloid tenosynovitis [de Quervain]; R80.9 Proteinuria, unspecified; M19.90 Unspecified osteoarthritis, unspecified site; Z79.4 Long term (current) use of insulin; Z79.82 Long term (current) use of aspirin; Z79.85 Long-term (current) use of injectable non-insulin antidiabetic drugs; Z79.84 Long term (current) use of oral hypoglycemic drugs; Z98.890 Other specified postprocedural states; Z98.51 Tubal ligation status; Z90.49 Acquired absence of other specified parts of digestive tract; Z85.828 Personal history of other malignant neoplasm of skin; Z80.51 Family history of malignant neoplasm of kidney; Z82.49 Family history of ischemic heart disease and other diseases of the circulatory system
CPT/HCPCS: G0105; 82948; J2003; J2371; J2704; J7120